=== PATIENT | female | born 1940 | race Caucasian/White ===

== ENCOUNTER 2019-11-09 18:32 | Emergency (ER) | payer MEDICARE, OTHER ==
[2019-11-09] MEDS ORDERED: Oxymetazoline 0.05% Nasal Spray 15 ML Bottle NAS SCH (18:45)
--- NOTE | 2019-11-09 18:48 | EDM.PDOC ---
ED HPI GENERAL MEDICAL PROBLEM - General Chief Complaint: ENT Problem Stated Complaint: NOSE BLEED Time Seen by Provider: 11/09/19 18:44 Source of Information: Reports: Patient History Limitations: Reports: No Limitations - History of Present Illness INITIAL COMMENTS - FREE TEXT/NARRATIVE: HISTORY AND PHYSICAL: History of present illness: Patient is a 78 year old female who presents to the ED with c/o epistasis of the left nare. She states she has had 2 brief nose bleeds earlier in the day, but resolved on their own. She states her nose started bleeding spontaneously again around 1630, but was unable to get the bleeding to stop. She denies any injury, trauma or falls. She is on Eliquist for Atrial Fibrillation. She states if it wasn't for her epistasis, she would not be here. Patient denies any fever , chills, headache, change in vision, syncope or near syncope. Denies any chest pain, back pain, shortness of breath or cough. Denies any GI or symptoms. Patient has been eating and drinking appropriately. Review of systems: As per history of present illness and below otherwise all systems reviewed and negative. Past medical history: As per history of present illness and as reviewed below otherwise noncontributory. Surgical history: As per history of present illness and as reviewed below otherwise noncontributory. Social history: See social history for further information Family history: As per history of present illness and as reviewed below otherwise noncontributory. Physical exam: General: Well developed and well nourished 78 year old female. Alert and orientated. Nontoxic appearing and in no acute distress. HEENT: Atraumatic, normocephalic, pupils equal and reactive bilaterally, negative for conjunctival pallor or scleral icterus, mucous membranes moist, epistasis of right nare, TMs normal bilaterally, throat clear, neck supple, nontender, trachea midline. No drooling or trismus noted. No meningeal signs. No hot potato voice noted. Lungs: Clear to auscultation, breath sounds equal bilaterally, chest nontender. Heart: S1S2, regular rate and rhythm without overt murmur Abdomen: Soft, nondistended, nontender. Negative for masses or hepatosplenomegaly. Negative for costovertebral tenderness. Skin: Intact, warm, dry. No lesions or rashes noted. Extremities: Atraumatic, moves all extremities per self without difficulty or deficits, negative for cords or calf pain. Neurovascular unremarkable. Neuro: Awake, alert, oriented. Cranial nerves II through XII unremarkable. Cerebellum unremarkable. Motor and sensory unremarkable throughout. Exam nonfocal. Notes: Dr Sanchez was able to perform the nasal packing. He used a 7.5 Rhino-Rocket that was saturated in TXA. Patient tolerated well. This did stop the bleeding. Lab has been ordered; will continue to monitor patient. Lab work is unremarkable. VSS. She has been watched for an hour without and bleeding post rhinorocket insert. Supportive care measures were reviewed and discussed. Voices understanding and is agreeable to plan of care. Denies any further questions or concerns at this time. Diagnostics: CBC Therapeutics: TXA, Afrin Prescription: None Impression: Epistatxis, left Plan: 1. Avoid any strenuous activity that will put pressure on your head, avoid sneezing or blowing your nose. 2. Tylenol and/or Ibuprofen as needed for pain. Return to the ED on Sunday to have the rhino-rocket removed. 3. Follow up with your primary care provider. Return to the ED as needed as discussed. Definitive disposition and diagnosis as appropriate pending reevaluation and review of above. Onset: Today Location: Reports: Face - Related Data Allergies Allergy/AdvReac Type Severity Reaction Status Date / Time ciprofloxacin HCl Allergy Numbness Verified 11/09/19 18:41 [From Cipro] Home Meds: Home Meds Levothyroxine [Levothroid] 137 mcg PO DAILY 11/14/14 [History] Omeprazole [Prilosec] 20 mg PO DAILY 11/14/14 [History] Digoxin [Lanoxin] 250 mcg PO DAILY #30 tablet 11/18/14 [Rx] Furosemide [Lasix] 20 mg PO DAILY #30 tab 11/18/14 [Rx] Metoprolol Tartrate 100 mg PO BID #60 tablet 11/18/14 [Rx] Apixaban [Eliquis] 2.5 mg PO ASDIRECTED 11/09/19 [History] ED ROS ENT - Review of Systems Review Of Systems: Comprehensive ROS is negative, except as noted in HPI. ED EXAM, ENT - Physical Exam Exam: See Below (See dictation) Course - Vital Signs Last Recorded V/S: Last Vital Signs Temp 98.3 F 11/09/19 18:47 Pulse 70 11/09/19 19:45 Resp 18 11/09/19 19:45 BP 139/97 H 11/09/19 19:45 Pulse Ox 93 L 11/09/19 19:45 - Orders/Labs/Meds Labs: Laboratory Tests 11/09/19 11/09/19 Range/Units 19:28 19:28 WBC 9.03 (4.0-11.0) K/uL RBC 5.17 (4.30-5.90) M/uL Hgb 16.5 H (12.0-16.0) g/dL Hct 49.5 H (36.0-46.0) % MCV 95.7 (80.0-98.0) fL MCH 31.9 (27.0-32.0) pg MCHC 33.3 (31.0-37.0) g/dL RDW Std Deviation 51.6 (28.0-62.0) fl RDW Coeff of Pearl 15 (11.0-15.0) % Plt Count 205 (150-400) K/uL MPV 11.40 (7.40-12.00) fL Neut % (Auto) 75.4 (48.0-80.0) % Lymph % (Auto) 16.2 (16.0-40.0) % [place] % (Auto) 6.5 (0.0-15.0) % Eos % (Auto) 1.3 (0.0-7.0) % Baso % (Auto) 0.6 (0.0-1.5) % Neut # (Auto) 6.8 H (1.4-5.7) K/uL Lymph # (Auto) 1.5 (0.6-2.4) K/uL [place] # (Auto) 0.6 (0.0-0.8) K/uL Eos # (Auto) 0.1 (0.0-0.7) K/uL Baso # (Auto) 0.1 (0.0-0.1) K/uL Nucleated RBC % 0.0 /100WBC Nucleated RBCs # 0 K/uL Sodium 140 (136-145) mmol/L Potassium 4.1 (3.5-5.1) mmol/L Chloride 104 (98-107) mmol/L Carbon Dioxide 31.6 (21.0-32.0) mmol/L BUN 21 H (7.0-18.0) mg/dL Creatinine 0.8 (0.6-1.0) mg/dL Est Cr Clr Drug Dosing 54.25 mL/min Estimated GFR (MDRD) > 60.0 ml/min Glucose 140 H (74-106) mg/dL Calcium 8.9 (8.5-10.1) mg/dL Meds: Medications Discontinued Medications Generic Name Dose Route Start Last Admin Trade Name Erendira PRN Reason Stop Dose Admin Oxymetazoline HCl 1 ml 11/09/19 18:45 11/09/19 19:46 Afrin Original 0.05% Nasal [place] VINH 1 ml BID JIGNESH Administration Tranexamic Acid 1,000 mg 11/09/19 18:42 11/09/19 19:45 Cyklokapron TOP 11/09/19 18:52 1,000 mg ONETIME ONE Administration Departure - Departure Time of Disposition: 19:49 Disposition: Home, Self-Care 01 Clinical Impression: Epistaxis - Discharge Information Instructions: Nosebleed, [id number] Referrals: Estuardo Toussaint MD [Primary Care Provider] - Forms: ED Department Discharge Additional Instructions: The following information is given to patients seen in the emergency department who are being discharged to home. This information is to outline your options for follow-up care. We provide all patients seen in our emergency department with a follow-up referral. The need for follow-up, as well as the timing and circumstances, are variable depending upon the specifics of your emergency department visit. If you don't have a primary care physician on staff, we will provide you with a referral. We always advise you to contact your personal physician following an emergency department visit to inform them of the circumstance of the visit and for follow-up with them and/or the need for any referrals to a consulting specialist. The emergency department will also refer you to a specialist when appropriate. This referral assures that you have the opportunity for follow-up care with a specialist. All of these measure are taken in an effort to provide you with optimal care, which includes your follow-up. Under all circumstances we always encourage you to contact your private physician who remains a resource for coordinating your care. When calling for follow-up care, please make the office aware that this follow-up is from your recent emergency room visit. If for any reason you are refused follow-up, please contact the [facility] Emergency Department at and asked to speak to the emergency department charge nurse. [facility] [address] [place] [address] [facility] [address] [place] [id number] 1. Avoid any strenuous activity that will put pressure on your head, avoid sneezing or blowing your nose. 2. Tylenol and/or Ibuprofen as needed for pain. Return to the ED on Sunday to have the rhino-rocket removed. 3. Follow up with your primary care provider. Return to the ED as needed as discussed. Sepsis Event Note - Focused Exam Vital Signs: Vital Signs Temp Pulse Resp BP Pulse Ox 11/09/19 19:45 70 18 139/97 H 93 L 11/09/19 19:30 72 18 133/108 H 93 L 11/09/19 18:47 98.3 F 87 16 148/110 H 92 L Date Exam was Performed: 11/09/19 Time Exam was Performed: 21:46
[2019-11-09 20:01] LABS: BLOOD UREA NITROGEN,BUN 21 mg/dL (7.0-18.0); CARBON DIOXIDE,CO2 31.6 mmol/L (21.0-32.0); CHLORIDE,CL 104 mmol/L (98-107); GLUCOSE RANDOM 140 mg/dL (74-106); POTASSIUM,K 4.1 mmol/L (3.5-5.1); SODIUM,NA 140 mmol/L (136-145)
[2019-11-09 20:09] VITALS: BP 139/97; PULSE 70
== END 2019-11-09 20:18 | disposition home or self-care (01) ==
LOC: MW.ED 18:32
DX: R04.0 Epistaxis (principal); I48.91 Unspecified atrial fibrillation; Z88.1 Allergy status to other antibiotic agents; Z79.899 Other long term (current) drug therapy; Z79.01 Long term (current) use of anticoagulants
CPT/HCPCS: 30901; 30903; 36415; 80048; 85025; 99283; 99284-25

== ENCOUNTER 2019-11-11 10:31 | Emergency (ER) | payer MEDICARE, OTHER ==
--- NOTE | 2019-11-11 11:04 | EDM.PDOC ---
ED HPI GENERAL MEDICAL PROBLEM - General Chief Complaint: ENT Problem Stated Complaint: NOSE BLEED Time Seen by Provider: 11/11/19 11:01 Source of Information: Reports: Patient History Limitations: Reports: No Limitations - History of Present Illness INITIAL COMMENTS - FREE TEXT/NARRATIVE: HISTORY AND PHYSICAL: History of present illness: Patient is a 78-year-old female presents to the ED for removal of nasal packing. Patient was seen in the ED 2 days ago and had a Rhino Rocket placed in the left nostril due to anterior epistaxis. Patient has history of atrial fibrillation on Eliquis. Has not been taking her Eliquis for the past 2 days and she presents to the ED to have the packing removed. She states she has not had any bleeding but has had a clear runny nose. She is not spitting up and blood or clots. She denies chest pain, shortness of breath, headache or other complaints at this time. Review of systems: As per history of present illness and below otherwise all systems reviewed and negative. Past medical history: As per history of present illness and as reviewed below otherwise noncontributory. Surgical history: As per history of present illness and as reviewed below otherwise noncontributory. Social history: No reported history of drug or alcohol abuse. Family history: As per history of present illness and as reviewed below otherwise noncontributory. Physical exam: General: Patient sitting comfortably in no acute distress and nontoxic appearing HEENT: Packing to the left nares. Atraumatic, normocephalic, pupils reactive, negative for conjunctival pallor or scleral icterus, mucous membranes moist, throat clear, neck supple, nontender, trachea midline. No meningeal signs. Lungs: Clear to auscultation, breath sounds equal bilaterally, chest nontender. Heart: S1S2, regular, negative for clicks, rubs, or overt murmur. Abdomen: Soft, nondistended, nontender. Negative for masses or hepatosplenomegaly. Negative for costovertebral tenderness. No rigidity, rebound , guarding. Pelvis: Stable nontender. Genitourinary: Deferred. Rectal: Deferred. Extremities: Atraumatic, negative for cords or calf pain. Neurovascular unremarkable. Neuro: Awake, alert, oriented. Cranial nerves II through XII unremarkable. Cerebellum unremarkable. Motor and sensory unremarkable throughout. Exam nonfocal. Notes: a 10cc syringe was used to deflate balloon from rhino rocket. The packing was easily removed from the left nares. No bleeding or other complications. Patient tolerated procedure well. Observed for 30 minutes without bleeding. Diagnostics: none Therapeutics: none Prescriptions: none Impression: Packing removal, history of epistaxis Plan: Do no blow nose, pick nose, or sneeze as instructed. Follow up with primary care provider and ENT Return to ED as needed as discussed Definitive disposition and diagnosis as appropriate pending reevaluation and review of above. - Related Data Allergies Allergy/AdvReac Type Severity Reaction Status Date / Time ciprofloxacin HCl Allergy Numbness Verified 11/11/19 10:43 [From Cipro] Home Meds: Home Meds Levothyroxine [Levothroid] 137 mcg PO DAILY 11/14/14 [History] Digoxin [Lanoxin] 250 mcg PO DAILY #30 tablet 11/18/14 [Rx] Furosemide [Lasix] 20 mg PO DAILY #30 tab 11/18/14 [Rx] Metoprolol Tartrate 100 mg PO BID #60 tablet 11/18/14 [Rx] Apixaban [Eliquis] 2.5 mg PO ASDIRECTED 11/09/19 [History] Past Medical History HEENT History: Reports: Epistaxis Cardiovascular History: Reports: Afib, Cardiomyopathy Respiratory History: Reports: None Gastrointestinal History: Reports: None Genitourinary History: Reports: None 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 Musculoskeletal History: Reports: None Neurological History: Reports: None Psychiatric History: Reports: None Endocrine/Metabolic History: Reports: None Hematologic History: Reports: None Immunologic History: Reports: None Oncologic (Cancer) History: Reports: Uterine Dermatologic History: Reports: None - Infectious Disease History Infectious Disease History: Reports: Chicken Pox, Mumps - Past Surgical History Head Surgeries/Procedures: Reports: None HEENT Surgical History: Reports: None Cardiovascular Surgical History: Reports: None Respiratory Surgical History: Reports: None GI Surgical History: Reports: None Female Surgical History: Reports: Hysterectomy Endocrine Surgical History: Reports: None Neurological Surgical History: Reports: None Musculoskeletal Surgical History: Reports: None Dermatological Surgical History: Reports: None Social & Family History - Family History Family Medical History: Noncontributory - Tobacco Use Smoking Status *Q: Never Smoker Second Hand Smoke Exposure: No - Caffeine Use Caffeine Use: Reports: None - Recreational Drug Use Recreational Drug Use: No ED ROS ENT - Review of Systems Review Of Systems: Comprehensive ROS is negative, except as noted in HPI. ED EXAM, ENT - Physical Exam Exam: See Below (see dictation) Course - Vital Signs Last Recorded V/S: Last Vital Signs Temp 97.2 F 11/11/19 10:44 Pulse 75 11/11/19 10:44 Resp 18 11/11/19 10:44 BP 142/89 H 11/11/19 10:44 Pulse Ox 95 11/11/19 10:44 Departure - Departure Time of Disposition: 11:32 Disposition: Home, Self-Care 01 Condition: Good Clinical Impression: Encounter for removal of nasal packing - Discharge Information Referrals: [facility] [Outside] John Shook MD [Ordering Only Provider] - Estuardo Toussaint MD [Primary Care Provider] - Forms: ED Department Discharge Additional Instructions: The following information is given to patients seen in the emergency department who are being discharged to home. This information is to outline your options for follow-up care. We provide all patients seen in our emergency department with a follow-up referral. The need for follow-up, as well as the timing and circumstances, are variable depending upon the specifics of your emergency department visit. If you don't have a primary care physician on staff, we will provide you with a referral. We always advise you to contact your personal physician following an emergency department visit to inform them of the circumstance of the visit and for follow-up with them and/or the need for any referrals to a consulting specialist. The emergency department will also refer you to a specialist when appropriate. This referral assures that you have the opportunity for follow-up care with a specialist. All of these measure are taken in an effort to provide you with optimal care, which includes your follow-up. Under all circumstances we always encourage you to contact your private physician who remains a resource for coordinating your care. When calling for follow-up care, please make the office aware that this follow-up is from your recent emergency room visit. If for any reason you are refused follow-up, please contact the [facility] Emergency Department at and asked to speak to the emergency department charge nurse. [facility] [address] [place] [id number] [facility] [address] [place] [id number] Shook [phone] Do no blow nose, pick nose, or sneeze as instructed. Follow up with primary care provider and ENT Return to ED as needed as discussed Sepsis Event Note - Evaluation Sepsis Screening Result: No Definite Risk - Focused Exam Vital Signs: Vital Signs Temp Pulse Resp BP Pulse Ox 11/11/19 10:44 97.2 F 75 18 142/89 H 95 Date Exam was Performed: 11/11/19 Time Exam was Performed: 11:32
[2019-11-11 11:50] VITALS: BP 139/78; PULSE 72
== END 2019-11-11 11:46 | disposition home or self-care (01) ==
LOC: MW.ED 10:31
DX: Z48.00 Encounter for change or removal of nonsurgical wound dressing (principal); I48.91 Unspecified atrial fibrillation; Z79.899 Other long term (current) drug therapy; Z88.1 Allergy status to other antibiotic agents
CPT/HCPCS: 99282

== ENCOUNTER 2020-03-30 09:07 | Emergency (ER) | payer MEDICARE, OTHER ==
[2020-03-30] MEDS ORDERED: Oxymetazoline 0.05% Nasal Spray 15 ML Bottle NAS ONE (09:13)
[2020-03-30 10:00] LABS: BLOOD UREA NITROGEN,BUN 16 mg/dL (7.0-18.0); CARBON DIOXIDE,CO2 27.5 mmol/L (21.0-32.0); CHLORIDE,CL 105 mmol/L (98-107); GLUCOSE RANDOM 156 mg/dL (74-106); POTASSIUM,K 3.5 mmol/L (3.5-5.1); SODIUM,NA 142 mmol/L (136-145)
--- NOTE | 2020-03-30 10:44 | EDM.PDOC ---
ED HPI GENERAL MEDICAL PROBLEM - General Chief Complaint: ENT Problem Stated Complaint: NOSE BLEED Time Seen by Provider: 03/30/20 09:09 Source of Information: Reports: Patient, Old Records History Limitations: Reports: No Limitations - History of Present Illness INITIAL COMMENTS - FREE TEXT/NARRATIVE: 79-year-old female past medical history of atrial fibrillation on apixaban, h ypertrophic cardiomyopathy, hypertension presenting with epistaxis. Reports the onset of left-sided epistaxis about 2 hours prior to arrival. No history of any digital trauma. Also had a nosebleed last night that resolved on its own. Denies any other source of hemorrhage. No recent change in her anticoagulation dosage. No other complaints. - Related Data Allergies Allergy/AdvReac Type Severity Reaction Status Date / Time ciprofloxacin HCl Allergy Numbness Verified 03/30/20 09:12 [From Cipro] Home Meds: Home Meds Levothyroxine [Levothroid] 137 mcg PO DAILY 11/14/14 [History] Digoxin [Lanoxin] 250 mcg PO DAILY #30 tablet 11/18/14 [Rx] Furosemide [Lasix] 20 mg PO DAILY #30 tab 11/18/14 [Rx] Metoprolol Tartrate 100 mg PO BID #60 tablet 11/18/14 [Rx] Apixaban [Eliquis] 1 tab PO BID 11/09/19 [History] Past Medical History HEENT History: Reports: Epistaxis Cardiovascular History: Reports: Afib, Cardiomyopathy Respiratory History: Reports: None Gastrointestinal History: Reports: None Genitourinary History: Reports: None BOOT TURNER History: Reports: None Musculoskeletal History: Reports: None Neurological History: Reports: None Psychiatric History: Reports: None Endocrine/Metabolic History: Reports: Hypothyroidism Hematologic History: Reports: None Immunologic History: Reports: None Oncologic (Cancer) History: Reports: Uterine Dermatologic History: Reports: None - Infectious Disease History Infectious Disease History: Reports: Chicken Pox, Measles, Mumps - Past Surgical History Head Surgeries/Procedures: Reports: None HEENT Surgical History: Reports: None Cardiovascular Surgical History: Reports: None Respiratory Surgical History: Reports: None GI Surgical History: Reports: None Female Surgical History: Reports: Hysterectomy Endocrine Surgical History: Reports: None Neurological Surgical History: Reports: None Musculoskeletal Surgical History: Reports: None Dermatological Surgical History: Reports: None Social & Family History - Family History Family Medical History: Noncontributory - Tobacco Use Smoking Status *Q: Former Smoker Used Tobacco, but Quit: Yes Month/Year Tobacco Last Used: 20 years ago - Caffeine Use Caffeine Use: Reports: None - Recreational Drug Use Recreational Drug Use: No ED ROS ENT - Review of Systems Review Of Systems: See Below Constitutional: Denies: Fever HEENT: Reports: Nosebleed. Denies: Rhinitis, Sinus Problem Respiratory: Denies: No Symptoms, Shortness of Breath Cardiovascular: Denies: Chest Pain GI/Abdominal: Denies: Bloody Stool : Denies: Hematuria ED EXAM, ENT - Physical Exam Exam: See Below Text/Narrative:: Vital signs reviewed. Nursing notes reviewed. Constitutional: Awake, alert, non-distressed. Head: Normocephalic, atraumatic. Eyes: EOMI, conjunctiva normal, no discharge, no scleral icterus. Ears, Nose, Throat: External ears and nose normal, moist oral mucosa. Dry blood noted in the posterior oropharynx. Dried blood in the left nostril. No palatal petechiae. Cardiovascular: 2+ radial pulse, capillary refill less than 2 seconds. Pulmonary: normal work of breathing, no accessory muscle use. Abdomen/GI: Soft, nontender, nondistended, no guarding or rigidity, no masses. Musculoskeletal: No deformities. Integumentary: Appropriate color for ethnicity, warm, dry, no pallor or jaundice, no rash. Neurologic: Alert, answering questions appropriately, normal speech, no facial droop, moving all extremities well. Psychiatric: Appropriate mood and affect, normal thought process. Course - Vital Signs Text/Narrative:: Patient hemodynamically stable, afebrile, well-appearing, looks nontoxic. Differential diagnosis includes but is not limited to: Anterior epistaxis, posterior epistaxis, coagulopathy, thrombocytopenia, etc. Instructed patient to blow out the clots in her nose, then instilled several sprays of Afrin and applied a foam nasal clamp. This successfully controlled the hemorrhage. Lab work shows no evidence of coagulopathy or thrombocytopenia. Hemodynamically stable, well-appearing. Stable discharge home. Provided instructions about epistaxis control at home. Recommended patient restart her anticoagulation tomorrow but hold her dose today. Plan: Patient is stable to discharge home with outpatient primary care follow- up. Strict emergency department return precautions were provided, patient indicated understanding. All questions were answered prior to departure. Discharged in good condition. Last Recorded V/S: Last Vital Signs Temp 36.3 C 03/30/20 10:44 Pulse 74 03/30/20 10:44 Resp 16 03/30/20 10:44 BP 168/89 H 03/30/20 10:44 Pulse Ox 91 L 03/30/20 10:44 - Orders/Labs/Meds Labs: Laboratory Tests 03/30/20 03/30/20 03/30/20 Range/Units 09:25 09:25 09:25 WBC 5.53 (4.0-11.0) K/uL RBC 5.45 (4.30-5.90) M/uL Hgb 17.0 H (12.0-16.0) g/dL Hct 51.9 H (36.0-46.0) % MCV 95.2 (80.0-98.0) fL MCH 31.2 (27.0-32.0) pg MCHC 32.8 (31.0-37.0) g/dL RDW Std Deviation 52.1 (28.0-62.0) fl RDW Coeff of Pearl 15 (11.0-15.0) % Plt Count 206 (150-400) K/uL MPV 11.00 (7.40-12.00) fL Neut % (Auto) 69.3 (48.0-80.0) % Lymph % (Auto) 20.3 (16.0-40.0) % Fergus % (Auto) 8.1 (0.0-15.0) % Eos % (Auto) 1.8 (0.0-7.0) % Baso % (Auto) 0.5 (0.0-1.5) % Neut # (Auto) 3.8 (1.4-5.7) K/uL Lymph # (Auto) 1.1 (0.6-2.4) K/uL Fergus # (Auto) 0.5 (0.0-0.8) K/uL Eos # (Auto) 0.1 (0.0-0.7) K/uL Baso # (Auto) 0.0 (0.0-0.1) K/uL Nucleated RBC % 0.0 /100WBC Nucleated RBCs # 0 K/uL INR 1.05 Sodium 142 (136-145) mmol/L Potassium 3.5 (3.5-5.1) mmol/L Chloride 105 (98-107) mmol/L Carbon Dioxide 27.5 (21.0-32.0) mmol/L BUN 16 (7.0-18.0) mg/dL Creatinine 0.7 (0.6-1.0) mg/dL Est Cr Clr Drug Dosing 61.01 mL/min Estimated GFR (MDRD) > 60.0 ml/min Glucose 156 H (74-106) mg/dL Calcium 9.1 (8.5-10.1) mg/dL Meds: Medications Discontinued Medications Generic Name Dose Route Start Last Admin Trade Name Freq PRN Reason Stop Dose Admin Oxymetazoline HCl 2 ml 03/30/20 09:13 03/30/20 09:47 Afrin Original 0.05% Nasal Lyon VINH 03/30/20 09:14 2 applic ONETIME ONE Administration Departure - Departure Time of Disposition: 10:43 Disposition: Home, Self-Care 01 Condition: Good Clinical Impression: Epistaxis not due to trauma - Discharge Information *PRESCRIPTION DRUG MONITORING PROGRAM REVIEWED*: Not Applicable *COPY OF PRESCRIPTION DRUG MONITORING REPORT IN PATIENT LONNIE: Not Applicable Instructions: Nosebleed, Adult Referrals: Estuardo Toussaint MD [Primary Care Provider] - 1 Week (As needed) Forms: ED Department Discharge Additional Instructions: Thank you for choosing the [facility] emergency department in [place] for your medical needs today. It was a pleasure caring for you. You were seen in the emergency department for a nosebleed. We were able to control this with some Afrin and a nasal clamp. If your nosebleed restarts at home, I recommend blowing your nose to get the clots out of your nose. You can then spray Afrin 2-3 times in each nostril and apply the nasal clamp for about 30 minutes. If this does not control the noseb leed, he should come back to the emergency department to be reevaluated. Please return the emergency department immediately if your symptoms worsen or if you feel worse. The following information is given to patients seen in the emergency department who are being discharged. This information is to outline your options for follow-up care. We provide all patients seen in our emergency department with a follow-up referral. The need for follow-up, as well as the timing and circumstances, are variable depending upon the specifics of your emergency department visit. If you don't have a primary care physician on staff, we will provide you with a referral. We always advise you to contact your personal physician following an emergency department visit to inform them of the circumstance of the visit and for follow-up with them and/or the need for any referrals to a consulting specialist. The emergency department will also refer you to a specialist when appropriate. This referral assures that you have the opportunity for follow-up care with a specialist. All of these measure are taken in an effort to provide you with optimal care, which includes your follow-up. Under all circumstances we always encourage you to contact your private physician who remains a resource for coordinating your care. When calling for follow-up care, please make the office aware that this follow-up is from your recent emergency room visit. If for any reason you are refused follow-up, please contact the [facility] Emergency Department at and asked to speak to the emergency department charge nurse. If you do not have a primary care physician that is caring for you, you can contact these clinics below to set up an appointment to establish care: [facility] - Primary Care [address] [place] [address] [place] [address] Sepsis Event Note (ED) - Evaluation Sepsis Screening Result: No Definite Risk - Focused Exam Vital Signs: Vital Signs Temp Pulse Resp BP Pulse Ox 03/30/20 10:44 36.3 C 74 16 168/89 H 91 L 03/30/20 10:01 36.2 C 90 16 162/102 H 93 L 03/30/20 09:08 36.5 C 88 18 204/116 H 94 L
[2020-03-30 10:46] VITALS: BP 168/89
[2020-03-30 13:55] VITALS: PULSE 72
== END 2020-03-30 10:48 | disposition home or self-care (01) ==
LOC: MW.ED 09:07
DX: R04.0 Epistaxis (principal); I48.91 Unspecified atrial fibrillation; Z88.1 Allergy status to other antibiotic agents; Z79.01 Long term (current) use of anticoagulants; Z79.899 Other long term (current) drug therapy; Z87.891 Personal history of nicotine dependence
CPT/HCPCS: 30901; 36415; 80048; 85025; 85610; 99283; A9270

== ENCOUNTER 2021-01-23 22:12 | Emergency (ER) | payer MEDICARE, OTHER ==
[2021-01-23 23:10] VITALS: BP 153/82; PULSE 96
[2021-01-23] MEDS ORDERED: Oxymetazoline 0.05% Nasal Spray 15 ML Bottle NAS ONE (23:13)
--- NOTE | 2021-01-23 23:17 | CR ---
INDICATION: Shortness of breath TECHNIQUE: Chest radiograph 1 view COMPARISON: 11/13/2014 FINDINGS: Severe degradation of image quality noted due to body habitus. Mediastinum: Large sliding type gastric hiatal hernia (type IV) is present and significantly increased in size compared to prior exam. Mild cardiomegaly is noted without change. Lung: Both lungs are unremarkable in appearance. No sign of pleural effusion seen. No pneumothorax is identified. Bone and Soft tissue: Unremarkable for age. IMPRESSION: 1. Large sliding type gastric hiatal hernia (type IV) is present and significantly increased in size compared to prior exam. Dictated by Gregory Reese MD @ 01/23/2021 11:14:31 PM Dictated by: Gregory Reese MD @ 01/23/2021 23:14:37 (Electronically Signed)
[2021-01-23 23:18] LABS: BLOOD UREA NITROGEN,BUN 21 mg/dL (7.0-18.0); CARBON DIOXIDE,CO2 28.8 mmol/L (21.0-32.0); CHLORIDE,CL 105 mmol/L (98-107); GLUCOSE RANDOM 150 mg/dL (74-106); POTASSIUM,K 4.5 mmol/L (3.5-5.1); SODIUM,NA 143 mmol/L (136-145)
[2021-01-24] MEDS ORDERED: Tranexamic Acid 1,000 MG in Sodium Chloride 0.9% 500 ML IV ONE (00:28)
[2021-01-24] MEDS ORDERED: Tranexamic Acid 1,000 MG in Sodium Chloride 0.9% 100 ML IV ONE (00:41)
--- NOTE | 2021-01-24 01:24 | EDM.PDOC ---
ED HPI GENERAL MEDICAL PROBLEM - General Chief Complaint: ENT Problem Stated Complaint: NOSE BLEED Time Seen by Provider: 01/23/21 22:17 - History of Present Illness INITIAL COMMENTS - FREE TEXT/NARRATIVE: CHIEF COMPLAINT(S): Bloody nose HISTORY OF PRESENT ILLNESS: This is a 80-year-old woman with a past medical history of atrial fibrillation on Eliquis who comes to the emergency department with a chief complaint of bloody nose. The patient states that she has been having frequent bloody noses and has been to the emergency department multiple times. She states that she is normally able to stop them at home however this evening it started to bleed approximately 1 and half hours ago. She did try to put compression on it but it seems to continually bleed. She denies any chest pain, shortness of breath, abdominal pain, nausea or vomiting. She denies any headache. She denies any runny nose or congestion. She denies any pain at all whatsoever. She denies any lower extremity edema. She states that given the bloody noses they have decreased her Eliquis but she is still having bloody noses. REVIEW OF SYSTEMS: Constitutional: Denies fever, chills. Eyes: Denies eye pain Ears, Nose, Mouth, & Throat: Positive for epistaxis denies earache Cardiovascular: Denies chest pain Respiratory: Denies shortness of breath Gastrointestinal: Denies Nausea, vomiting, diarrhea, hematochezia. Genitourinary: Denies hematuria Skin:Denies a rash MSK: Denies joint pain Neurological: Denies blurred vision Psychiatric: Denies depression PAST MEDICAL HISTORY: As per history of present illness and as reviewed below otherwise noncontributory. SURGICAL HISTORY: As per history of present illness and as reviewed below otherwise noncontributory. SOCIAL HISTORY: As per history of present illness and as reviewed below other wayne noncontributory. FAMILY HISTORY: As per history of present illness and as reviewed below otherwise noncontributory. EXAMINATION OF ORGAN SYSTEMS/BODY AREAS: Constitutional: Blood pressure was 146/113, heart rate 103, respiratory rate 18 with an oxygen saturation 90% on room air. Temperature 36.1 General: Elderly woman who does not appear to be in any acute distress. Psychiatric: Appropriate mood and affect. Eyes: No scleral icterus or conjunctival erythema ENMT: Moist mucous membranes. No pharyngeal erythema there is some blood in the oropharynx but there is no obvious bleeding in the posterior pharynx. The right nostril is clear without any epistaxis. The left nostril has a large clot with small trickle of blood. No obvious area of active bleeding. Cardiovascular: Tachycardic and irregular no gallops, murmurs, or rubs. Bilateral upper extremity pulses symmetric and intact. No peripheral edema. No JVD. Respiratory: Lungs clear to auscultation bilaterally. No wheezes, rales, or rhonchi. The patient does appear to be mildly tachypneic but is speaking in full sentences. Gastrointestinal: Soft, non-tender, non-distended. Normoactive bowel sounds Genitourinary: No suprapubic tenderness Musculoskeletal: Normal range of motion. Skin: No lesions or abrasions. Neurological: Alert, GCS 15 MEDICAL DECISION MAKING AND COURSE IN THE ED WITH INTERPRETATION/REVIEW OF DIAGNOSTIC STUDIES: This is a 80-year-old with man with a past medical history of atrial fibrillation on Eliquis who comes to the emergency department with 1 and half hours of epistaxis with evidence of bleeding coming out of the left nostril without any evidence of posterior pharyngeal bleeding. I do believe this is likely secondary to anterior nares bleeding. At this time we will apply pressure for approximately 15 minutes and reevaluate. In the meantime the patient is mildly tachypneic and does have a history of atrial fibrillation. Will obtain a cardiac work-up including chest x-ray, troponin, and BMP. EKG did reveal atrial fibrillation which is unchanged from prior. After approximately 15 minutes the pressure was removed and the patient still had continued bleeding. There was a large clot located in the left nostril. Therefore at this time we will provide Afrin nasally and then provide compression again. Laboratory: CBC reveals a mildly elevated white count 11.35, elevation hemoglobin at 17.6 and hematocrit 54.4. Otherwise unremarkable. Coags are within normal limits. BMP reveals mildly elevated BUN at 21 otherwise unremarkable. There is hyperglycemia at 150. Magnesium is normal. Troponin is negative. BNP is mildly elevated at 182. The radiological images were viewed by myself along with reading the report from the radiologist. Chest x-ray reveals a large sliding-type gastric hiatal hernia which is increased from prior otherwise no acute cardiopulmonary process. After using Afrin the patient's bloody nose did stop however there was a large clot that extended from the anterior nares all the way into the posterior pharynx which was causing her to have some shortness of breath. Therefore using multiple different modalities over about an hour we were able to dislodge the clot. There was no active bleeding in the posterior pharynx or in the anterior nares. At this time I did discuss the hiatal hernia with the patient. She states that she has not known of this however she denies any reflux symptoms, vomiting, pain, shortness of breath. I did discuss with her at this time that I would like her to follow-up with general surgery for the hiatal hernia. She was given treatment modalities for the epistaxis DISPOSITION: The patient was discharged home in stable condition. The patient will follow up with general surgery for the hiatal hernia and her primary care physician for further evaluation CONDITION: Fair PROCEDURES: None FINAL IMPRESSION(S)/DIAGNOSES: 1. Acute epistaxis, resolved 2. Acute dyspnea likely secondary to nasal obstruction, improved 3. Hiatal hernia Omar Goncalves M.D. - Related Data Allergies Allergy/AdvReac Type Severity Reaction Status Date / Time ciprofloxacin HCl Allergy Numbness Verified 01/23/21 22:23 [From Cipro] Home Meds: Home Meds Levothyroxine [Levothroid] 137 mcg PO DAILY 11/14/14 [History] Digoxin [Lanoxin] 250 mcg PO DAILY #30 tablet 11/18/14 [Rx] Furosemide [Lasix] 20 mg PO DAILY #30 tab 11/18/14 [Rx] Metoprolol Tartrate 100 mg PO BID #60 tablet 11/18/14 [Rx] Apixaban [Eliquis] 1 tab PO BID 11/09/19 [History] Past Medical History HEENT History: Reports: Epistaxis Cardiovascular History: Reports: Afib, Cardiomyopathy Respiratory History: Reports: None Gastrointestinal History: Reports: None Genitourinary History: Reports: None 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 Musculoskeletal History: Reports: None Neurological History: Reports: None Psychiatric History: Reports: None Endocrine/Metabolic History: Reports: Hypothyroidism Hematologic History: Reports: None Immunologic History: Reports: None Oncologic (Cancer) History: Reports: Uterine Dermatologic History: Reports: None - Infectious Disease History Infectious Disease History: Reports: Chicken Pox, Measles, Mumps - Past Surgical History Head Surgeries/Procedures: Reports: None HEENT Surgical History: Reports: None Cardiovascular Surgical History: Reports: None Respiratory Surgical History: Reports: None GI Surgical History: Reports: None Female Surgical History: Reports: Hysterectomy Endocrine Surgical History: Reports: None Neurological Surgical History: Reports: None Musculoskeletal Surgical History: Reports: None Dermatological Surgical History: Reports: None Social & Family History - Family History Family Medical History: No Pertinent Family History - Caffeine Use Caffeine Use: Reports: None ED ROS GENERAL - Review of Systems Review Of Systems: See Below ED EXAM, GENERAL - Physical Exam Exam: See Below Course - Vital Signs Last Recorded V/S: Last Vital Signs Temp 36.1 C 01/23/21 22:24 Pulse 96 01/23/21 23:09 Resp 18 01/23/21 23:09 BP 153/82 H 01/23/21 23:09 Pulse Ox 95 01/23/21 23:09 - Orders/Labs/Meds Labs: Laboratory Tests 01/23/21 01/23/21 01/23/21 Range/Units 22:36 22:36 22:36 WBC 11.35 H (4.0-11.0) K/uL RBC 5.45 (4.30-5.90) M/uL Hgb 17.6 H (12.0-16.0) g/dL Hct 54.4 H (36.0-46.0) % MCV 99.8 H (80.0-98.0) fL MCH 32.3 H (27.0-32.0) pg MCHC 32.4 (31.0-37.0) g/dL RDW Std Deviation 51.9 (28.0-62.0) fl RDW Coeff of Pearl 14 (11.0-15.0) % Plt Count 199 (150-400) K/uL MPV 11.40 (7.40-12.00) fL Neut % (Auto) 83.0 H (48.0-80.0) % Lymph % (Auto) 10.0 L (16.0-40.0) % [place] % (Auto) 5.6 (0.0-15.0) % Eos % (Auto) 0.9 (0.0-7.0) % Baso % (Auto) 0.5 (0.0-1.5) % Neut # (Auto) 9.4 H (1.4-5.7) K/uL Lymph # (Auto) 1.1 (0.6-2.4) K/uL [place] # (Auto) 0.6 (0.0-0.8) K/uL Eos # (Auto) 0.1 (0.0-0.7) K/uL Baso # (Auto) 0.1 (0.0-0.1) K/uL Nucleated RBC % 0.0 /100WBC Nucleated RBCs # 0 K/uL INR 1.12 APTT 25.0 (18.6-31.3) SEC Sodium 143 (136-145) mmol/L Potassium 4.5 (3.5-5.1) mmol/L Chloride 105 (98-107) mmol/L Carbon Dioxide 28.8 (21.0-32.0) mmol/L BUN 21 H (7.0-18.0) mg/dL Creatinine 0.9 (0.6-1.0) mg/dL Est Cr Clr Drug Dosing 44.86 mL/min Estimated GFR (MDRD) > 60.0 ml/min Glucose 150 H (74-106) mg/dL Calcium 9.3 (8.5-10.1) mg/dL Magnesium 2.0 (1.8-2.4) mg/dL Troponin I < 0.050 (0.000-0.056) ng/mL B-Natriuretic Peptide (<100) PG/ML 01/23/21 Range/Units 22:36 WBC (4.0-11.0) K/uL RBC (4.30-5.90) M/uL Hgb (12.0-16.0) g/dL Hct (36.0-46.0) % MCV (80.0-98.0) fL MCH (27.0-32.0) pg MCHC (31.0-37.0) g/dL RDW Std Deviation (28.0-62.0) fl RDW Coeff of [place] (11.0-15.0) % Plt Count (150-400) K/uL MPV (7.40-12.00) fL Neut % (Auto) (48.0-80.0) % Lymph % (Auto) (16.0-40.0) % [place] % (Auto) (0.0-15.0) % Eos % (Auto) (0.0-7.0) % Baso % (Auto) (0.0-1.5) % Neut # (Auto) (1.4-5.7) K/uL Lymph # (Auto) (0.6-2.4) K/uL [place] # (Auto) (0.0-0.8) K/uL Eos # (Auto) (0.0-0.7) K/uL Baso # (Auto) (0.0-0.1) K/uL Nucleated RBC % /100WBC Nucleated RBCs # K/uL INR APTT (18.6-31.3) SEC Sodium (136-145) mmol/L Potassium (3.5-5.1) mmol/L Chloride (98-107) mmol/L Carbon Dioxide (21.0-32.0) mmol/L BUN (7.0-18.0) mg/dL Creatinine (0.6-1.0) mg/dL Est Cr Clr Drug Dosing mL/min Estimated GFR (MDRD) ml/min Glucose (74-106) mg/dL Calcium (8.5-10.1) mg/dL Magnesium (1.8-2.4) mg/dL Troponin I (0.000-0.056) ng/mL B-Natriuretic Peptide 182 H (<100) PG/ML Meds: Medications Discontinued Medications Generic Name Dose Route Start Last Admin Trade Name Freq PRN Reason Stop Dose Admin Tranexamic Acid 1,000 mg/ 510 mls @ 62.5 mls/hr 01/24/21 00:28 Sodium Chloride IV 01/24/21 08:37 ONETIME ONE Tranexamic Acid 1,000 mg/ 110 mls @ 600 mls/hr 01/24/21 00:41 Sodium Chloride IV 01/24/21 00:51 ONETIME ONE Oxymetazoline HCl 1 ml 01/23/21 23:13 01/23/21 23:51 Oxymetazoline 0.05% Nasal [place] 15 Ml Bottle VINH 01/23/21 23:14 1 ml ONETIME ONE Administration Tranexamic Acid 1,000 mg 01/24/21 00:43 01/24/21 01:37 Tranexamic Acid 1,000 Mg/10 Ml Amp TOP 01/24/21 00:52 Not Given ONETIME ONE Departure - Departure Time of Disposition: 01:23 Disposition: Home, Self-Care 01 Condition: Fair Clinical Impression: Epistaxis - Discharge Information *PRESCRIPTION DRUG MONITORING PROGRAM REVIEWED*: No *COPY OF PRESCRIPTION DRUG MONITORING REPORT IN PATIENT LONNIE: No Instructions: Nosebleed, [id number] Referrals: Estuardo Toussaint MD [Primary Care Provider] - Forms: ED Department Discharge Additional Instructions: You evaluate today on an emergent basis. At this time we did stop your nosebleed. I do recommend the continued use of a humidifier at home. Please get [place] [id number] and use throughout the day. Please return to the emergency department for any new or worsening bleeding. In addition on your x-ray there was a hiatal hernia. I would like you to follow-up with general surgery for monitoring and evaluation. [facility] - [facility] [address] [place] [address] [place] [address] [facility] - General Surgery Professional Building [address] [place] [address], [address] [place] [address] The patient is informed of any results of their evaluation and diagnostic workup and all questions are answered. They are given discharge instructions and return precautions. The patient is stable for discharge. The patient states they understand and agree with the plan and that they will return if their symptoms get worse or if they have any new concerns. The following information is given to patients seen in the emergency department who are being discharged to home. This information is to outline your options for follow-up care. We provide all patients seen in our emergency department with a follow-up referral. The need for follow-up, as well as the timing and circumstances, are variable depending upon the specifics of your emergency department visit. If you don't have a primary care physician on staff, we will provide you with a referral. We always advise you to contact your personal physician following an emergency department visit to inform them of the circumstance of the visit and for follow-up with them and/or the need for any referrals to a consulting specialist. The emergency department will also refer you to a specialist when appropriate. This referral assures that you have the opportunity for follow-up care with a specialist. All of these measure are taken in an effort to provide you with optimal care, which includes your follow-up. Under all circumstances we always encourage you to contact your private physician who remains a resource for coordinating your care. When calling for follow-up care, please make the office aware that this follow-up is from your recent emergency room visit. If for any reason you are refused follow-up, please contact the [facility] Emergency Department at and asked to speak to the emergency department charge nurse. Sepsis Event Note (ED) - Evaluation Sepsis Screening Result: No Definite Risk - Focused Exam Vital Signs: Vital Signs Temp Pulse Resp BP Pulse Ox 01/23/21 23:09 96 18 153/82 H 95 01/23/21 22:24 36.1 C 103 H 18 146/113 H 90 L
--- NOTE | 2021-01-24 03:11 | PCM.EKG ---
#1 Interpretation EKG Date: 01/23/21 Time: 20:52 Rhythm: A-Fib Rate (Beats/Min): 78 [place]: LAD-Left [place] Deviation P-Wave: Absent QRS: Normal (Q waves in leads II, III, aVF, V2-V6) ST-T: Normal QT: Normal Comparison: No Change (11/13/14) EKG Interpretation Comments: Atrial fibrillation with occasional PVC and inferior and anterolateral Q waves
== END 2021-01-24 01:40 | disposition home or self-care (01) ==
LOC: MW.ED 22:12
DX: R04.0 Epistaxis (principal); K44.9 Diaphragmatic hernia without obstruction or gangrene; E03.9 Hypothyroidism, unspecified; Z79.01 Long term (current) use of anticoagulants; Z79.899 Other long term (current) drug therapy; Z88.1 Allergy status to other antibiotic agents
CPT/HCPCS: 30901; 36415; 71045; 71045-26; 80048; 83735; 83880; 84484; 85025; 85610; 85730; 93005; 93010; 99282; 99284-25

== ENCOUNTER 2021-04-24 23:30 | Emergency (ER) | payer MEDICARE, OTHER ==
[2021-04-24] MEDS ORDERED: Lidocaine 1% with EPINEPHrine 1:100,000 20 ML MDV INJECT ONE (23:37)
--- NOTE | 2021-04-24 23:37 | EDM.PDOC ---
ED HPI GENERAL MEDICAL PROBLEM - General Chief Complaint: ENT Problem Stated Complaint: NOSE BLEED Time Seen by Provider: 04/24/21 23:34 Source of Information: Reports: Patient History Limitations: Reports: No Limitations - History of Present Illness INITIAL COMMENTS - FREE TEXT/NARRATIVE: 80-year-old female past medical history hypertension, atrial fibrillation on anticoagulation, frequent epistaxis presents for epistaxis. This is patient's fifth ER visit for similar. She notes it is always from the left nare and happen spontaneously despite not picking her nose and no reported trauma. Nosebleed tonight started around 2 hours ago. She does not feel dizzy, lightheaded, presyncopal, denies chest pain, she does feel some shortness of breath and can feel blood running down the back of her throat. She has tried manual pressure for about 2 hours without relief. - Related Data Allergies Allergy/AdvReac Type Severity Reaction Status Date / Time ciprofloxacin HCl Allergy Numbness Verified 01/23/21 22:23 [From Cipro] Home Meds: Home Meds Levothyroxine [Levothroid] 137 mcg PO DAILY 11/14/14 [History] Digoxin [Lanoxin] 250 mcg PO DAILY #30 tablet 11/18/14 [Rx] Furosemide [Lasix] 20 mg PO DAILY #30 tab 11/18/14 [Rx] Metoprolol Tartrate 100 mg PO BID #60 tablet 11/18/14 [Rx] Apixaban [Eliquis] 1 tab PO BID 11/09/19 [History] Past Medical History HEENT History: Reports: Epistaxis Cardiovascular History: Reports: Afib, Cardiomyopathy Respiratory History: Reports: None Gastrointestinal History: Reports: None Genitourinary History: Reports: None 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 Musculoskeletal History: Reports: None Neurological History: Reports: None Psychiatric History: Reports: None Endocrine/Metabolic History: Reports: Hypothyroidism Hematologic History: Reports: None Immunologic History: Reports: None Oncologic (Cancer) History: Reports: Uterine Dermatologic History: Reports: None - Infectious Disease History Infectious Disease History: Reports: Chicken Pox, Measles, Mumps - Past Surgical History Head Surgeries/Procedures: Reports: None HEENT Surgical History: Reports: None Cardiovascular Surgical History: Reports: None Respiratory Surgical History: Reports: None GI Surgical History: Reports: None Female Surgical History: Reports: Hysterectomy Endocrine Surgical History: Reports: None Neurological Surgical History: Reports: None Musculoskeletal Surgical History: Reports: None Dermatological Surgical History: Reports: None Social & Family History - Family History Family Medical History: No Pertinent Family History - Caffeine Use Caffeine Use: Reports: None ED ROS GENERAL - Review of Systems Review Of Systems: Comprehensive ROS is negative, except as noted in HPI. ED EXAM, GENERAL - Physical Exam Exam: See Below Exam Limited By: No Limitations General Appearance: Alert, WD/WN, No Apparent Distress Ears: Hearing Grossly Normal Nose: Other (large amount of bleeding w/ clots from L nare) Throat/Mouth: Normal Voice, No Airway Compromise, Other (large amount of intraoral blood with blood running down oropharynx) Head: Atraumatic, Normocephalic Neck: Normal Inspection Respiratory/Chest: No Respiratory Distress, Lungs Clear, Normal Breath Sounds, N o Accessory Muscle Use Cardiovascular: Normal Peripheral Pulses Extremities: Normal Inspection Neurological: Alert, Normal Cognition Psychiatric: Normal Affect, Normal Mood Skin Exam: Warm, Dry, Intact, Normal Color Course - Vital Signs Last Recorded V/S: Last Vital Signs Temp 97.3 F 04/24/21 23:32 Pulse 78 04/25/21 01:36 Resp 18 04/25/21 01:36 BP 168/97 H 04/25/21 01:36 Pulse Ox 96 04/25/21 01:36 - Orders/Labs/Meds Labs: Laboratory Tests 04/25/21 04/25/21 Range/Units 00:29 00:29 WBC 8.54 (4.0-11.0) K/uL RBC 5.33 (4.30-5.90) M/uL Hgb 16.8 H (12.0-16.0) g/dL Hct 51.8 H (36.0-46.0) % MCV 97.2 (80.0-98.0) fL MCH 31.5 (27.0-32.0) pg MCHC 32.4 (31.0-37.0) g/dL RDW Std Deviation 52.4 (28.0-62.0) fl RDW Coeff of Pearl 15 (11.0-15.0) % Plt Count 166 (150-400) K/uL MPV 11.20 (7.40-12.00) fL Neut % (Auto) 79.3 (48.0-80.0) % Lymph % (Auto) 11.5 L (16.0-40.0) % [place] % (Auto) 7.5 (0.0-15.0) % Eos % (Auto) 1.2 (0.0-7.0) % Baso % (Auto) 0.5 (0.0-1.5) % Neut # (Auto) 6.8 H (1.4-5.7) K/uL Lymph # (Auto) 1.0 (0.6-2.4) K/uL [place] # (Auto) 0.6 (0.0-0.8) K/uL Eos # (Auto) 0.1 (0.0-0.7) K/uL Baso # (Auto) 0.0 (0.0-0.1) K/uL Sodium 142 (136-145) mmol/L Potassium 4.9 (3.5-5.1) mmol/L Chloride 103 (98-107) mmol/L Carbon Dioxide 34.7 H (21.0-32.0) mmol/L BUN 25 H (7.0-18.0) mg/dL Creatinine 1.0 (0.6-1.0) mg/dL Est Cr Clr Drug Dosing TNP Estimated GFR (MDRD) 53.3 ml/min Glucose 154 H (74-106) mg/dL Calcium 8.8 (8.5-10.1) mg/dL Meds: Medications Discontinued Medications Generic Name Dose Route Start Last Admin Trade Name Freq PRN Reason Stop Dose Admin Lidocaine/Epinephrine 20 ml 04/24/21 23:37 04/25/21 00:34 Lidocaine 1% With Epinephrine 1:100,000 20 Ml Mdv INJECT 04/24/21 23:38 20 ml ONETIME ONE Administration Oxymetazoline HCl 1 ml 04/25/21 00:05 04/25/21 00:34 Oxymetazoline 0.05% Nasal [place] 15 Ml Bottle VINH 04/25/21 00:06 1 ml ONETIME ONE Administration - Re-Assessments/Exams Free Text/Narrative Re-Assessment/Exam: 04/24/21 23:37 Will get basic labs to ensure no significant blood loss anemia. Patient has large amount of bleeding and I believe will require a nasal tampon. At this time she declines nasal tampon. Will continue direct pressure and reassess. 04/25/21 02:01 Bleeding well controlled with direct pressure. She has been without nasal pressure x1-hr and still no active bleeding. Will d/c with ENT f/u Departure - Departure Time of Disposition: 02:01 Disposition: Home, Self-Care 01 Condition: Good Clinical Impression: Epistaxis - Discharge Information Instructions: Nosebleed, Adult Forms: ED Department Discharge Additional Instructions: ENT follow-up: Dr. John Shook [facility], [address] [place], [place] [id number] Dr. Christian Mckenna [facility] [address] [place] [address] The following information is given to patients seen in the emergency department who are being discharged to home. This information is to outline your options for follow-up care. We provide all patients seen in our emergency department with a follow-up referral. The need for follow-up, as well as the timing and circumstances, are variable depending upon the specifics of your emergency department visit. If you don't have a primary care physician on staff, we will provide you with a referral. We always advise you to contact your personal physician following an emergency department visit to inform them of the circumstance of the visit and for follow-up with them and/or the need for any referrals to a consulting spe cialist. The emergency department will also refer you to a specialist when appropriate. This referral assures that you have the opportunity for follow-up care with a specialist. All of these measure are taken in an effort to provide you with optimal care, which includes your follow-up. Under all circumstances we always encourage you to contact your private physician who remains a resource for coordinating your care. When calling for follow-up care, please make the office aware that this follow-up is from your recent emergency room visit. If for any reason you are refused follow-up, please contact the [facility] Emergency Department at and asked to speak to the emergency department charge nurse. Please follow up with your primary care physician. If you do not have a primary care physician, see below: [facility] [address] [place] [address] [facility] [address] [place], [place] [address] [facility] - Pediatric [facility] [address] [place] [address] Sepsis Event Note (ED) - Focused Exam Vital Signs: Vital Signs Temp Pulse Resp BP Pulse Ox 04/25/21 01:36 78 18 168/97 H 96 04/24/21 23:32 97.3 F 83 18 173/116 H 97
[2021-04-25] MEDS ORDERED: Oxymetazoline 0.05% Nasal Spray 15 ML Bottle NAS ONE (00:05)
[2021-04-25 00:49] LABS: BLOOD UREA NITROGEN,BUN 25 mg/dL (7.0-18.0); CARBON DIOXIDE,CO2 34.7 mmol/L (21.0-32.0); CHLORIDE,CL 103 mmol/L (98-107); GLUCOSE RANDOM 154 mg/dL (74-106); POTASSIUM,K 4.9 mmol/L (3.5-5.1); SODIUM,NA 142 mmol/L (136-145)
[2021-04-25 01:37] VITALS: PULSE 78
[2021-04-25 02:14] VITALS: BP 163/96
== END 2021-04-25 02:14 | disposition home or self-care (01) ==
LOC: MW.ED 23:30
DX: R04.0 Epistaxis (principal); I48.91 Unspecified atrial fibrillation; E03.9 Hypothyroidism, unspecified; Z79.01 Long term (current) use of anticoagulants; Z79.899 Other long term (current) drug therapy; Z88.1 Allergy status to other antibiotic agents
CPT/HCPCS: 36415; 80048; 85025; 99283

== ENCOUNTER 2022-02-01 17:37 | Inpatient (IN) | payer MEDICARE, OTHER ==
[2022-02-01] MEDS ORDERED: methylPREDNISolone Sodium Succinate 125 MG/2 ML SDV IVPUSH ONE (17:40)
[2022-02-01] MEDS ORDERED: Albuterol/Ipratropium 3.0-0.5 MG/3 ML Neb Soln NEB STA (17:41)
[2022-02-01] MEDS ORDERED: Albuterol 0.5% 5 MG/ML Neb Soln 20 ML Bottle NEB STA (17:42)
[2022-02-01] MEDS ORDERED: Albuterol/Ipratropium 3.0-0.5 MG/3 ML Neb Soln ONE (17:43)
[2022-02-01 18:31] LABS: CARBON DIOXIDE,CO2 28.8 mmol/L (21.0-32.0); POTASSIUM,K 3.8 mmol/L (3.5-5.1)
[2022-02-01] MEDS ORDERED: Furosemide 40 MG/4 ML VIAL IVPUSH STA (18:32)
[2022-02-01 19:48] LABS: CORONAVIRUS COVID-19 NAA NEGATIVE (NEGATIVE); INFLUENZA A NAA NEGATIVE (NEGATIVE); INFLUENZA B NAA NEGATIVE (NEGATIVE)
[2022-02-01] MEDS ORDERED: Albuterol/Ipratropium 3.0-0.5 MG/3 ML Neb Soln NEB PRN (19:59)
[2022-02-01] MEDS ORDERED: Non-Formulary Medication 1 Each (Metoprolol Tartrate 100 MG Tablet) PO SCH (21:00)
[2022-02-01] MEDS: Apixaban 2.5 MG Tab PO SCH (22:34)
[2022-02-01] MEDS: Furosemide 40 MG/4 ML VIAL IVPUSH SCH (22:49)
[2022-02-01] MEDS ORDERED: Metoprolol Tartrate 25 MG Tab PO ONE (23:00)
[2022-02-01] MEDS: Losartan 50 MG Tab PO SCH (23:07)
[2022-02-02 07:08] LABS: CARBON DIOXIDE,CO2 26.8 mmol/L (21.0-32.0); POTASSIUM,K 4.1 mmol/L (3.5-5.1)
[2022-02-02] MEDS: Levothyroxine 25 MCG Tab PO SCH (08:10)
[2022-02-02] MEDS: Levothyroxine 112 MCG Tab PO SCH (08:10)
[2022-02-02] MEDS: Furosemide 40 MG/4 ML VIAL IVPUSH SCH ×2 (08:11→20:27)
[2022-02-02] MEDS: Digoxin 250 MCG Tab PO SCH (08:11)
[2022-02-02] MEDS: methylPREDNISolone Sodium Succinate 40 MG/1 ML SDV IVPUSH SCH (08:11)
[2022-02-02] MEDS: Apixaban 2.5 MG Tab PO SCH ×2 (08:11→20:25)
[2022-02-02] MEDS ORDERED: Metoprolol Tartrate 50 MG Tab PO SCH (09:00)
[2022-02-02] MEDS ORDERED: Non-Formulary Medication 1 Each (Levothyroxine [Levothroid] 137 MCG Tablet) PO SCH (09:00)
[2022-02-02] MEDS: Losartan 50 MG Tab PO SCH (20:23)
[2022-02-02] MEDS: Metoprolol Tartrate 25 MG Tab PO SCH (20:26)
[2022-02-03] MEDS: Levothyroxine 112 MCG Tab PO SCH (06:35)
[2022-02-03] MEDS: Levothyroxine 25 MCG Tab PO SCH (06:35)
[2022-02-03 07:23] LABS: CARBON DIOXIDE,CO2 31.4 mmol/L (21.0-32.0); POTASSIUM,K 3.6 mmol/L (3.5-5.1)
[2022-02-03] MEDS: Digoxin 250 MCG Tab PO SCH (08:16)
[2022-02-03] MEDS: methylPREDNISolone Sodium Succinate 40 MG/1 ML SDV IVPUSH SCH (08:16)
[2022-02-03] MEDS: Apixaban 2.5 MG Tab PO SCH ×2 (08:16→20:14)
[2022-02-03] MEDS: Furosemide 40 MG/4 ML VIAL IVPUSH SCH ×2 (08:17→20:14)
[2022-02-03] MEDS: Metoprolol Tartrate 25 MG Tab PO SCH ×2 (09:30→20:15)
[2022-02-03] MEDS: Losartan 50 MG Tab PO SCH (20:14)
[2022-02-04] MEDS: Levothyroxine 112 MCG Tab PO SCH (06:30)
[2022-02-04] MEDS: Levothyroxine 25 MCG Tab PO SCH (06:30)
[2022-02-04 07:19] LABS: BLOOD UREA NITROGEN,BUN 35 mg/dL (7.0-18.0); CARBON DIOXIDE,CO2 30.4 mmol/L (21.0-32.0); CHLORIDE,CL 104 mmol/L (98-107); GLUCOSE RANDOM 108 mg/dL (74-106); POTASSIUM,K 5.1 mmol/L (3.5-5.1); SODIUM,NA 141 mmol/L (136-145)
[2022-02-04] MEDS: Metoprolol Tartrate 50 MG Tab PO SCH ×2 (10:27→20:28)
[2022-02-04] MEDS: Apixaban 2.5 MG Tab PO SCH ×2 (10:28→20:28)
[2022-02-04] MEDS: Digoxin 250 MCG Tab PO SCH (10:28)
[2022-02-04] MEDS: Furosemide 40 MG/4 ML VIAL IVPUSH SCH ×2 (10:29→20:27)
[2022-02-04] MEDS: methylPREDNISolone Sodium Succinate 40 MG/1 ML SDV IVPUSH SCH (10:29)
[2022-02-04] MEDS: Losartan 50 MG Tab PO SCH (20:28)
[2022-02-05] MEDS: Levothyroxine 25 MCG Tab PO SCH (06:30)
[2022-02-05] MEDS: Levothyroxine 112 MCG Tab PO SCH (06:31)
[2022-02-05 07:05] LABS: BLOOD UREA NITROGEN,BUN 40 mg/dL (7.0-18.0); CARBON DIOXIDE,CO2 32.6 mmol/L (21.0-32.0); CHLORIDE,CL 103 mmol/L (98-107); GLUCOSE RANDOM 104 mg/dL (74-106); POTASSIUM,K 4.5 mmol/L (3.5-5.1); SODIUM,NA 141 mmol/L (136-145)
[2022-02-05] MEDS: Apixaban 2.5 MG Tab PO SCH ×2 (09:06→20:40)
[2022-02-05] MEDS: Digoxin 250 MCG Tab PO SCH (09:06)
[2022-02-05] MEDS: methylPREDNISolone Sodium Succinate 40 MG/1 ML SDV IVPUSH SCH (09:06)
[2022-02-05] MEDS: Furosemide 40 MG/4 ML VIAL IVPUSH SCH ×2 (09:06→20:40)
[2022-02-05] MEDS: Metoprolol Tartrate 50 MG Tab PO SCH ×2 (09:06→20:40)
[2022-02-05] MEDS: Losartan 50 MG Tab PO SCH (20:39)
[2022-02-06] MEDS: Levothyroxine 112 MCG Tab PO SCH (06:32)
[2022-02-06] MEDS: Levothyroxine 25 MCG Tab PO SCH (06:32)
[2022-02-06 07:14] LABS: BLOOD UREA NITROGEN,BUN 40 mg/dL (7.0-18.0); CHLORIDE,CL 103 mmol/L (98-107); GLUCOSE RANDOM 99 mg/dL (74-106); POTASSIUM,K 3.8 mmol/L (3.5-5.1); SODIUM,NA 143 mmol/L (136-145)
[2022-02-06] MEDS: Metoprolol Tartrate 50 MG Tab PO SCH (08:21)
[2022-02-06] MEDS: Apixaban 2.5 MG Tab PO SCH (08:21)
[2022-02-06] MEDS: Furosemide 40 MG/4 ML VIAL IVPUSH SCH (08:21)
[2022-02-06] MEDS: Digoxin 250 MCG Tab PO SCH (08:24)
[2022-02-06 15:06] VITALS: BP 147/93; PULSE 65
== END 2022-02-06 13:35 | disposition home health service (06) | DRG 291 ==
LOC: MW.ED 17:37 → MW.MS 19:51
PROVIDERS: ADMIT Internal Medicine; ATTEND Internal Medicine
DX: I50.33 Acute on chronic diastolic (congestive) heart failure (principal); I50.9 Heart failure, unspecified; J96.01 Acute respiratory failure with hypoxia; J44.1 Chronic obstructive pulmonary disease with (acute) exacerbation; I42.9 Cardiomyopathy, unspecified; Z20.822 Contact with and (suspected) exposure to COVID-19; I48.91 Unspecified atrial fibrillation; E03.9 Hypothyroidism, unspecified; Z79.890 Hormone replacement therapy; Z79.01 Long term (current) use of anticoagulants; Z79.899 Other long term (current) drug therapy; Z88.1 Allergy status to other antibiotic agents; Z85.42 Personal history of malignant neoplasm of other parts of uterus; Z86.19 Personal history of other infectious and parasitic diseases; Z90.710 Acquired absence of both cervix and uterus; Z86.16 Personal history of COVID-19; K59.00 Constipation, unspecified
CPT/HCPCS: 0240U; 36415; 36600; 71045; 80048; 80053; 80162; 82803; 83735; 83880; 84100; 84484; 85025; 93005; 93306; 96374; 99285; A9270-GY; J1940; J2920; J2930; J7620-GY

== ENCOUNTER 2022-09-09 17:24 | Inpatient (IN) | payer MEDICARE, OTHER ==
[2022-09-09 20:07] LABS: CARBON DIOXIDE,CO2 31.1 mmol/L (21.0-32.0); POTASSIUM,K 4.8 mmol/L (3.5-5.1)
[2022-09-09 20:18] LABS: CORONAVIRUS COVID-19 NAA NEGATIVE (NEGATIVE); INFLUENZA A NAA NEGATIVE (NEGATIVE); INFLUENZA B NAA NEGATIVE (NEGATIVE); RESPIRATORY SYNCYTIAL VIR NAA NEGATIVE (NEGATIVE)
[2022-09-09] MEDS ORDERED: Furosemide 40 MG/4 ML VIAL IVPUSH STA (21:08)
[2022-09-09] MEDS ORDERED: Albuterol/Ipratropium 3.0-0.5 MG/3 ML Neb Soln NEB PRN (23:11)
[2022-09-09] MEDS ORDERED: Heparin Sodium 5,000 Units/ML Vial SUBCUT SCH (23:15)
[2022-09-09] MEDS: Apixaban 2.5 MG Tab PO SCH (23:58)
[2022-09-10] MEDS: Levothyroxine 25 MCG Tab PO SCH (06:41)
[2022-09-10] MEDS: Levothyroxine 112 MCG Tab PO SCH (06:42)
[2022-09-10] MEDS ORDERED: Polyethylene Glycol 3350 Powder 17 GM Packet PO PRN (07:31)
[2022-09-10] MEDS ORDERED: Ondansetron 4 MG/2 ML SDV IVPUSH PRN (07:31)
[2022-09-10 07:54] LABS: CARBON DIOXIDE,CO2 28.6 mmol/L (21.0-32.0); POTASSIUM,K 4.3 mmol/L (3.5-5.1)
[2022-09-10] MEDS: Apixaban 2.5 MG Tab PO SCH ×2 (08:29→20:55)
[2022-09-10] MEDS ORDERED: Furosemide 40 MG/4 ML VIAL IVPUSH SCH (09:00)
[2022-09-10] MEDS: Furosemide 40 MG/4 ML VIAL IVPUSH SCH ×2 (09:30→14:53)
[2022-09-10] MEDS: Losartan 50 MG Tab PO SCH (20:56)
[2022-09-10] MEDS: Acetaminophen 325 MG Tab PO PRN (23:48)
[2022-09-11] MEDS: Acetaminophen 325 MG Tab PO PRN ×2 (04:47→20:05)
[2022-09-11] MEDS: Levothyroxine 25 MCG Tab PO SCH (06:33)
[2022-09-11] MEDS: Levothyroxine 112 MCG Tab PO SCH (06:33)
[2022-09-11 07:47] LABS: CARBON DIOXIDE,CO2 30.8 mmol/L (21.0-32.0); POTASSIUM,K 4.1 mmol/L (3.5-5.1)
[2022-09-11] MEDS: Furosemide 40 MG/4 ML VIAL IVPUSH SCH ×5 (07:56→22:04)
[2022-09-11] MEDS: Apixaban 2.5 MG Tab PO SCH ×2 (08:00→20:06)
[2022-09-11] MEDS ORDERED: Furosemide 40 MG/4 ML VIAL IVPUSH ONE (10:21)
[2022-09-11] MEDS: Losartan 50 MG Tab PO SCH (20:11)
[2022-09-12 06:36] LABS: CARBON DIOXIDE,CO2 30.1 mmol/L (21.0-32.0); POTASSIUM,K 3.7 mmol/L (3.5-5.1)
[2022-09-12] MEDS: Furosemide 40 MG/4 ML VIAL IVPUSH SCH ×3 (06:54→21:04)
[2022-09-12] MEDS: Levothyroxine 25 MCG Tab PO SCH (06:54)
[2022-09-12] MEDS: Levothyroxine 112 MCG Tab PO SCH (06:54)
[2022-09-12] MEDS: Apixaban 2.5 MG Tab PO SCH ×2 (09:56→21:04)
[2022-09-12] MEDS: Metoprolol Tartrate 50 MG Tab PO SCH ×2 (11:13→21:04)
[2022-09-13] MEDS: Furosemide 40 MG/4 ML VIAL IVPUSH SCH ×3 (06:30→22:09)
[2022-09-13] MEDS: Levothyroxine 25 MCG Tab PO SCH (06:30)
[2022-09-13] MEDS: Levothyroxine 112 MCG Tab PO SCH (06:34)
[2022-09-13 08:01] LABS: CARBON DIOXIDE,CO2 28.9 mmol/L (21.0-32.0); POTASSIUM,K 3.4 mmol/L (3.5-5.1)
[2022-09-13] MEDS ORDERED: Potassium Chloride 20 MEQ Tab.ER PO ONE (09:30)
[2022-09-13] MEDS: Metoprolol Tartrate 50 MG Tab PO SCH ×2 (09:47→20:21)
[2022-09-13] MEDS: Apixaban 2.5 MG Tab PO SCH ×2 (09:47→20:21)
[2022-09-13] MEDS: Digoxin 125 MCG Tab PO SCH (12:10)
[2022-09-13] MEDS: Losartan 50 MG Tab PO SCH (20:22)
[2022-09-14] MEDS: Levothyroxine 112 MCG Tab PO SCH (06:32)
[2022-09-14] MEDS: Levothyroxine 25 MCG Tab PO SCH (06:32)
[2022-09-14] MEDS: Furosemide 40 MG/4 ML VIAL IVPUSH SCH ×3 (06:54→21:07)
[2022-09-14] MEDS ORDERED: Metoprolol Succinate 100 MG Tab.ER PO SCH (09:00)
[2022-09-14] MEDS: Apixaban 2.5 MG Tab PO SCH ×2 (09:47→21:07)
[2022-09-14] MEDS: Digoxin 125 MCG Tab PO SCH (09:55)
[2022-09-15] MEDS: Furosemide 40 MG/4 ML VIAL IVPUSH SCH ×3 (06:12→21:43)
[2022-09-15] MEDS: Levothyroxine 25 MCG Tab PO SCH (06:50)
[2022-09-15] MEDS: Levothyroxine 112 MCG Tab PO SCH (06:51)
[2022-09-15] MEDS ORDERED: Potassium Chloride 20 MEQ Tab.ER PO ONE (08:30)
[2022-09-15] MEDS: Apixaban 2.5 MG Tab PO SCH ×2 (09:12→21:43)
[2022-09-15] MEDS: Digoxin 125 MCG Tab PO SCH (09:13)
[2022-09-16] MEDS: Levothyroxine 112 MCG Tab PO SCH (06:55)
[2022-09-16] MEDS: Furosemide 40 MG/4 ML VIAL IVPUSH SCH ×3 (06:55→22:09)
[2022-09-16] MEDS: Apixaban 2.5 MG Tab PO SCH ×2 (08:13→22:09)
[2022-09-16] MEDS: Digoxin 125 MCG Tab PO SCH (08:13)
[2022-09-16] MEDS: Levothyroxine 25 MCG Tab PO SCH (09:00)
[2022-09-16 12:45] LABS: CARBON DIOXIDE,CO2 30.6 mmol/L (21.0-32.0); POTASSIUM,K 4.7 mmol/L (3.5-5.1)
[2022-09-17] MEDS ORDERED: Magnesium Sulfate/Water 2 GM in Premix Bag 1 BAG IV ONE (01:30)
[2022-09-17] MEDS: Furosemide 40 MG/4 ML VIAL IVPUSH SCH ×3 (06:18→21:29)
[2022-09-17] MEDS: Levothyroxine 25 MCG Tab PO SCH (06:48)
[2022-09-17] MEDS: Levothyroxine 112 MCG Tab PO SCH (06:49)
[2022-09-17 07:08] LABS: CARBON DIOXIDE,CO2 30.5 mmol/L (21.0-32.0); POTASSIUM,K 3.6 mmol/L (3.5-5.1)
[2022-09-17] MEDS: Apixaban 2.5 MG Tab PO SCH ×2 (10:03→21:29)
[2022-09-17] MEDS: Digoxin 125 MCG Tab PO SCH (10:03)
[2022-09-17] MEDS: Sodium Chloride 0.65% Nasal Spray 45 ML Bottle NAS PRN (17:41)
[2022-09-18] MEDS: Levothyroxine 112 MCG Tab PO SCH (06:35)
[2022-09-18] MEDS: Levothyroxine 25 MCG Tab PO SCH (06:35)
[2022-09-18] MEDS: Furosemide 40 MG/4 ML VIAL IVPUSH SCH ×3 (06:36→22:04)
[2022-09-18] MEDS: Digoxin 125 MCG Tab PO SCH (08:43)
[2022-09-18] MEDS: Apixaban 2.5 MG Tab PO SCH ×2 (08:43→21:52)
[2022-09-18] MEDS: Sodium Chloride 0.65% Nasal Spray 45 ML Bottle NAS PRN (23:52)
[2022-09-19] MEDS: Levothyroxine 112 MCG Tab PO SCH (06:37)
[2022-09-19] MEDS: Furosemide 40 MG/4 ML VIAL IVPUSH SCH ×2 (06:37→13:26)
[2022-09-19] MEDS: Levothyroxine 25 MCG Tab PO SCH (06:38)
[2022-09-19 07:46] LABS: CARBON DIOXIDE,CO2 34.5 mmol/L (21.0-32.0); POTASSIUM,K 2.9 mmol/L (3.5-5.1)
[2022-09-19] MEDS: Digoxin 125 MCG Tab PO SCH (09:32)
[2022-09-19] MEDS: Apixaban 2.5 MG Tab PO SCH (09:32)
[2022-09-19] MEDS ORDERED: Potassium Chloride 100 ML IV SCH (10:15)
[2022-09-19] MEDS: Potassium Chloride 20 MEQ Tab.ER PO SCH ×2 (11:18→15:04)
[2022-09-19 14:21] LABS: CARBON DIOXIDE,CO2 34.5 mmol/L (21.0-32.0); POTASSIUM,K 3.2 mmol/L (3.5-5.1)
[2022-09-19] MEDS ORDERED: Metoprolol Tartrate 50 MG Tab PO SCH (14:45)
[2022-09-19 15:05] VITALS: BP 143/89; PULSE 82
== END 2022-09-19 17:10 | disposition home health service (06) | DRG 291 ==
LOC: MW.ED 17:24 → MW.MS 21:10
PROVIDERS: ADMIT Student in an Organized Health Care Education/Training Program; ATTEND Student in an Organized Health Care Education/Training Program
DX: I11.0 Hypertensive heart disease with heart failure (principal); I50.30 Unspecified diastolic (congestive) heart failure; J96.01 Acute respiratory failure with hypoxia; I50.33 Acute on chronic diastolic (congestive) heart failure; I42.9 Cardiomyopathy, unspecified; M19.90 Unspecified osteoarthritis, unspecified site; J96.21 Acute and chronic respiratory failure with hypoxia; Z79.01 Long term (current) use of anticoagulants; E03.9 Hypothyroidism, unspecified; Z96.651 Presence of right artificial knee joint; I48.91 Unspecified atrial fibrillation; Z66 Do not resuscitate; Z20.822 Contact with and (suspected) exposure to COVID-19; Z87.891 Personal history of nicotine dependence; Z88.1 Allergy status to other antibiotic agents; Z86.16 Personal history of COVID-19; Z90.49 Acquired absence of other specified parts of digestive tract; Z90.710 Acquired absence of both cervix and uterus; Z79.890 Hormone replacement therapy; Z79.899 Other long term (current) drug therapy
CPT/HCPCS: 0241U; 36415; 71045; 80048; 80053; 80162; 83605; 83735; 83880; 84100; 84484; 85025; 85610; 87040; 93005; 93306; 96374; 97161; 97530; 99291; A9270-GY; J1940; J3475

== ENCOUNTER 2023-01-05 12:10 | Inpatient (IN) | payer MEDICARE, OTHER ==
[2023-01-05] MEDS ORDERED: Sodium Chloride 0.9% 10 ML Syringe FLUSH PRN (12:25)
[2023-01-05] MEDS ORDERED: Sodium Chloride 0.9% 2.5 ML Syringe FLUSH PRN (12:25)
[2023-01-05] MEDS ORDERED: Furosemide 40 MG/4 ML VIAL IVPUSH ONE (12:31)
[2023-01-05 13:45] LABS: CARBON DIOXIDE,CO2 26.7 mmol/L (21.0-32.0); POTASSIUM,K 4.6 mmol/L (3.5-5.1)
[2023-01-05] MEDS ORDERED: Sodium Chloride 0.9% 500 ML IV SCH (14:15)
[2023-01-05] MEDS ORDERED: Ondansetron 4 MG Tab.DIS PO PRN (17:00)
[2023-01-05] MEDS ORDERED: Ondansetron 4 MG/2 ML SDV IVPUSH PRN (17:00)
[2023-01-05] MEDS ORDERED: Acetaminophen 325 MG Tab PO PRN (17:00)
[2023-01-05] MEDS ORDERED: Bisacodyl 5 MG Tab PO PRN (17:01)
[2023-01-05] MEDS ORDERED: Albuterol/Ipratropium 3.0-0.5 MG/3 ML Neb Soln NEB PRN (18:00)
[2023-01-05] MEDS: Furosemide 20 MG/2 ML VIAL IVPUSH SCH (21:23)
[2023-01-05] MEDS: Apixaban 2.5 MG Tab PO SCH (21:23)
[2023-01-06 06:54] LABS: CARBON DIOXIDE,CO2 26.4 mmol/L (21.0-32.0); POTASSIUM,K 4.4 mmol/L (3.5-5.1)
[2023-01-06] MEDS ORDERED: Non-Formulary Medication 1 Each (Levothyroxine [Levothroid] 137 MCG Tablet) PO SCH (09:00)
[2023-01-06] MEDS: Furosemide 20 MG/2 ML VIAL IVPUSH SCH ×4 (09:36→22:01)
[2023-01-06] MEDS: Potassium Chloride 10 MEQ Tab.ER PO SCH (09:36)
[2023-01-06] MEDS: Apixaban 2.5 MG Tab PO SCH ×2 (11:11→21:31)
[2023-01-06] MEDS: Docusate Sodium 100 MG Cap PO PRN (21:31)
[2023-01-07] MEDS: Furosemide 20 MG/2 ML VIAL IVPUSH SCH ×4 (06:40→23:04)
[2023-01-07] MEDS: Apixaban 2.5 MG Tab PO SCH ×2 (08:12→21:30)
[2023-01-07] MEDS: Potassium Chloride 10 MEQ Tab.ER PO SCH (08:12)
[2023-01-07 09:09] LABS: CARBON DIOXIDE,CO2 26.5 mmol/L (21.0-32.0)
[2023-01-07 09:14] LABS: POTASSIUM,K 5.1 mmol/L (3.5-5.1)
[2023-01-07] MEDS ORDERED: Mirtazapine 15 MG Tab.DIS PO SCH (21:00)
[2023-01-08] MEDS: Furosemide 20 MG/2 ML VIAL IVPUSH SCH ×3 (06:41→22:56)
[2023-01-08 09:03] LABS: CARBON DIOXIDE,CO2 26.9 mmol/L (21.0-32.0); POTASSIUM,K 3.9 mmol/L (3.5-5.1)
[2023-01-08] MEDS: Apixaban 2.5 MG Tab PO SCH ×2 (10:22→21:14)
[2023-01-08] MEDS: Potassium Chloride 10 MEQ Tab.ER PO SCH (10:22)
[2023-01-08] MEDS ORDERED: Sodium Chloride 0.9% 2.5 ML Syringe FLUSH PRN (11:10)
[2023-01-08] MEDS ORDERED: Sodium Chloride 0.9% 10 ML Syringe FLUSH PRN (11:10)
[2023-01-08] MEDS: Mirtazapine 15 MG Tab.DIS PO SCH (21:14)
[2023-01-09] MEDS: Furosemide 20 MG/2 ML VIAL IVPUSH SCH (06:31)
[2023-01-09 08:25] LABS: CARBON DIOXIDE,CO2 28.6 mmol/L (21.0-32.0); POTASSIUM,K 3.9 mmol/L (3.5-5.1)
[2023-01-09] MEDS: Potassium Chloride 10 MEQ Tab.ER PO SCH (09:33)
[2023-01-09] MEDS: Apixaban 2.5 MG Tab PO SCH ×2 (09:34→20:28)
[2023-01-09] MEDS: Bumetanide 1 MG/4 ML MDV IVPUSH SCH ×2 (10:03→17:43)
[2023-01-09] MEDS: Mirtazapine 15 MG Tab.DIS PO SCH (20:28)
[2023-01-10] MEDS ORDERED: Bumetanide 1 MG/4 ML MDV ONE (01:48)
[2023-01-10] MEDS: Bumetanide 1 MG/4 ML MDV IVPUSH SCH ×3 (01:53→15:55)
[2023-01-10] MEDS ORDERED: Levothyroxine 112 MCG Tab ONE (06:10)
[2023-01-10] MEDS ORDERED: Levothyroxine 25 MCG Tab ONE ×2 (06:10→08:27)
[2023-01-10 08:20] LABS: CARBON DIOXIDE,CO2 25.8 mmol/L (21.0-32.0); POTASSIUM,K 3.7 mmol/L (3.5-5.1)
[2023-01-10] MEDS: Apixaban 2.5 MG Tab PO SCH ×2 (08:31→20:30)
[2023-01-10] MEDS: Potassium Chloride 10 MEQ Tab.ER PO SCH (08:32)
[2023-01-10] MEDS: Docusate Sodium 100 MG Cap PO PRN (14:14)
[2023-01-10] MEDS: Polyethylene Glycol 3350 Powder 17 GM Packet PO PRN (14:14)
[2023-01-10] MEDS ORDERED: Polyethylene Glycol 3350 Powder 17 GM Packet PO ONE (19:19)
[2023-01-10] MEDS: Mirtazapine 15 MG Tab.DIS PO SCH (20:30)
[2023-01-11] MEDS ORDERED: Levothyroxine 25 MCG Tab ONE (06:16)
[2023-01-11 06:51] LABS: CARBON DIOXIDE,CO2 21.4 mmol/L (21.0-32.0); POTASSIUM,K 3.8 mmol/L (3.5-5.1)
[2023-01-11] MEDS: Apixaban 2.5 MG Tab PO SCH ×2 (08:11→21:27)
[2023-01-11] MEDS: Bumetanide 1 MG/4 ML MDV IVPUSH SCH ×2 (08:11→13:51)
[2023-01-11] MEDS: Potassium Chloride 10 MEQ Tab.ER PO SCH (08:12)
[2023-01-11] MEDS ORDERED: Fluconazole 150 MG Tab PO ONE (08:56)
[2023-01-11] MEDS: Nystatin Susp 100,000 Unit/ML 5 ML UD Cup PO SCH ×3 (13:51→19:25)
[2023-01-11] MEDS: Mirtazapine 15 MG Tab.DIS PO SCH (21:27)
[2023-01-12] MEDS: Nystatin Susp 100,000 Unit/ML 5 ML UD Cup PO SCH ×4 (02:26→18:36)
[2023-01-12 06:00] LABS: CARBON DIOXIDE,CO2 29.1 mmol/L (21.0-32.0); POTASSIUM,K 3.6 mmol/L (3.5-5.1)
[2023-01-12] MEDS: Bumetanide 1 MG/4 ML MDV IVPUSH SCH ×2 (07:45→14:50)
[2023-01-12] MEDS: Potassium Chloride 10 MEQ Tab.ER PO SCH (08:11)
[2023-01-12] MEDS: Apixaban 2.5 MG Tab PO SCH ×2 (08:11→20:46)
[2023-01-12] MEDS: Polyethylene Glycol 3350 Powder 17 GM Packet PO PRN (08:38)
[2023-01-12] MEDS: Mirtazapine 15 MG Tab.DIS PO SCH (20:45)
[2023-01-13] MEDS: Nystatin Susp 100,000 Unit/ML 5 ML UD Cup PO SCH ×5 (00:01→23:48)
[2023-01-13 08:11] LABS: CARBON DIOXIDE,CO2 29.7 mmol/L (21.0-32.0); POTASSIUM,K 3.5 mmol/L (3.5-5.1)
[2023-01-13] MEDS: Potassium Chloride 10 MEQ Tab.ER PO SCH (08:11)
[2023-01-13] MEDS: Bumetanide 1 MG/4 ML MDV IVPUSH SCH ×2 (08:12→14:40)
[2023-01-13] MEDS: Apixaban 2.5 MG Tab PO SCH ×2 (08:12→20:24)
[2023-01-13] MEDS: Mirtazapine 15 MG Tab.DIS PO SCH (20:25)
[2023-01-14] MEDS: Nystatin Susp 100,000 Unit/ML 5 ML UD Cup PO SCH ×4 (06:04→23:11)
[2023-01-14 06:35] LABS: CARBON DIOXIDE,CO2 29.9 mmol/L (21.0-32.0); POTASSIUM,K 3.1 mmol/L (3.5-5.1)
[2023-01-14] MEDS ORDERED: Potassium Chloride 20 MEQ Tab.ER PO ONE (07:14)
[2023-01-14] MEDS: Apixaban 2.5 MG Tab PO SCH ×2 (08:37→20:31)
[2023-01-14] MEDS: Potassium Chloride 10 MEQ Tab.ER PO SCH (08:37)
[2023-01-14] MEDS: Bumetanide 1 MG/4 ML MDV IVPUSH SCH ×2 (08:38→13:50)
[2023-01-14] MEDS: Mirtazapine 15 MG Tab.DIS PO SCH (20:31)
[2023-01-15 06:06] LABS: CARBON DIOXIDE,CO2 30.4 mmol/L (21.0-32.0); POTASSIUM,K 3.2 mmol/L (3.5-5.1)
[2023-01-15] MEDS: Nystatin Susp 100,000 Unit/ML 5 ML UD Cup PO SCH ×3 (06:21→17:38)
[2023-01-15] MEDS: Bumetanide 1 MG/4 ML MDV IVPUSH SCH ×2 (09:21→14:20)
[2023-01-15] MEDS: Apixaban 2.5 MG Tab PO SCH ×2 (09:22→20:42)
[2023-01-15] MEDS: Potassium Chloride 20 MEQ Tab.ER PO SCH ×2 (09:51→13:14)
[2023-01-15] MEDS: Mirtazapine 15 MG Tab.DIS PO SCH (20:41)
[2023-01-16] MEDS: Nystatin Susp 100,000 Unit/ML 5 ML UD Cup PO SCH ×4 (00:45→18:25)
[2023-01-16] MEDS: Apixaban 2.5 MG Tab PO SCH ×2 (08:51→21:29)
[2023-01-16] MEDS: Potassium Chloride 20 MEQ Tab.ER PO SCH ×2 (09:03→12:16)
[2023-01-16] MEDS: Bumetanide 1 MG/4 ML MDV IVPUSH SCH ×2 (09:07→14:03)
[2023-01-16] MEDS: Mirtazapine 15 MG Tab.DIS PO SCH (21:29)
[2023-01-17] MEDS: Nystatin Susp 100,000 Unit/ML 5 ML UD Cup PO SCH ×4 (00:25→18:06)
[2023-01-17] MEDS: Bumetanide 1 MG/4 ML MDV IVPUSH SCH ×2 (07:53→14:18)
[2023-01-17] MEDS: Potassium Chloride 20 MEQ Tab.ER PO SCH ×2 (08:03→13:15)
[2023-01-17] MEDS: Apixaban 2.5 MG Tab PO SCH ×2 (08:04→20:11)
[2023-01-17 08:32] LABS: CARBON DIOXIDE,CO2 30.3 mmol/L (21.0-32.0); POTASSIUM,K 3.9 mmol/L (3.5-5.1)
[2023-01-17] MEDS: Mirtazapine 15 MG Tab PO SCH (20:11)
[2023-01-18] MEDS: Nystatin Susp 100,000 Unit/ML 5 ML UD Cup PO SCH ×4 (00:51→17:39)
[2023-01-18] MEDS: Bumetanide 1 MG/4 ML MDV IVPUSH SCH ×2 (08:09→15:15)
[2023-01-18] MEDS: Potassium Chloride 20 MEQ Tab.ER PO SCH ×2 (08:10→12:01)
[2023-01-18] MEDS: Apixaban 2.5 MG Tab PO SCH ×2 (08:10→20:25)
[2023-01-18 08:56] LABS: CARBON DIOXIDE,CO2 27.1 mmol/L (21.0-32.0); POTASSIUM,K 4.2 mmol/L (3.5-5.1)
[2023-01-18] MEDS: Mirtazapine 15 MG Tab PO SCH (20:25)
[2023-01-19] MEDS: Nystatin Susp 100,000 Unit/ML 5 ML UD Cup PO SCH ×2 (00:06→06:22)
[2023-01-19] MEDS: Potassium Chloride 20 MEQ Tab.ER PO SCH ×2 (08:10→12:08)
[2023-01-19] MEDS: Bumetanide 1 MG/4 ML MDV IVPUSH SCH ×2 (08:10→14:13)
[2023-01-19] MEDS: Apixaban 2.5 MG Tab PO SCH ×2 (08:10→21:32)
[2023-01-19] MEDS: Mirtazapine 15 MG Tab PO SCH (21:32)
[2023-01-20 06:24] LABS: CARBON DIOXIDE,CO2 27.8 mmol/L (21.0-32.0); POTASSIUM,K 4.5 mmol/L (3.5-5.1)
[2023-01-20] MEDS: Potassium Chloride 20 MEQ Tab.ER PO SCH ×2 (08:08→12:29)
[2023-01-20] MEDS: Bumetanide 1 MG/4 ML MDV IVPUSH SCH ×2 (08:08→14:17)
[2023-01-20] MEDS: Apixaban 2.5 MG Tab PO SCH ×2 (08:09→20:12)
[2023-01-20] MEDS: Mirtazapine 15 MG Tab PO SCH (20:12)
[2023-01-21] MEDS: Potassium Chloride 20 MEQ Tab.ER PO SCH ×2 (08:04→13:02)
[2023-01-21] MEDS: Apixaban 2.5 MG Tab PO SCH ×2 (08:04→20:04)
[2023-01-21] MEDS: Bumetanide 1 MG/4 ML MDV IVPUSH SCH ×2 (08:05→14:11)
[2023-01-21] MEDS: Mirtazapine 15 MG Tab PO SCH (20:04)
[2023-01-22 07:01] LABS: CARBON DIOXIDE,CO2 29.7 mmol/L (21.0-32.0); POTASSIUM,K 3.5 mmol/L (3.5-5.1)
[2023-01-22] MEDS: Apixaban 2.5 MG Tab PO SCH ×2 (08:46→20:22)
[2023-01-22] MEDS: Potassium Chloride 20 MEQ Tab.ER PO SCH ×2 (08:46→12:43)
[2023-01-22] MEDS: Bumetanide 1 MG/4 ML MDV IVPUSH SCH ×2 (08:46→14:17)
[2023-01-22] MEDS: Mirtazapine 15 MG Tab PO SCH (20:22)
[2023-01-23] MEDS: Apixaban 2.5 MG Tab PO SCH ×2 (08:08→20:45)
[2023-01-23] MEDS: Bumetanide 1 MG/4 ML MDV IVPUSH SCH (08:09)
[2023-01-23] MEDS: Potassium Chloride 20 MEQ Tab.ER PO SCH ×2 (08:11→13:32)
[2023-01-23] MEDS: Bumetanide 1 MG Tab PO SCH (13:32)
[2023-01-23] MEDS: Mirtazapine 15 MG Tab PO SCH (20:45)
[2023-01-24] MEDS: Apixaban 2.5 MG Tab PO SCH ×2 (09:25→21:43)
[2023-01-24] MEDS: Potassium Chloride 20 MEQ Tab.ER PO SCH ×2 (09:25→13:35)
[2023-01-24] MEDS: Bumetanide 1 MG Tab PO SCH ×2 (09:25→13:35)
[2023-01-24] MEDS: Mirtazapine 15 MG Tab PO SCH (21:40)
[2023-01-25 09:11] LABS: CARBON DIOXIDE,CO2 27.2 mmol/L (21.0-32.0); POTASSIUM,K 3.8 mmol/L (3.5-5.1)
[2023-01-25] MEDS: Apixaban 2.5 MG Tab PO SCH ×2 (10:00→21:16)
[2023-01-25] MEDS: Potassium Chloride 20 MEQ Tab.ER PO SCH ×2 (10:00→14:07)
[2023-01-25] MEDS: Bumetanide 1 MG Tab PO SCH ×2 (10:14→14:07)
[2023-01-25] MEDS: Mirtazapine 15 MG Tab PO SCH (21:17)
[2023-01-26] MEDS: Apixaban 2.5 MG Tab PO SCH (09:09)
[2023-01-26] MEDS: Potassium Chloride 20 MEQ Tab.ER PO SCH (09:16)
[2023-01-26] MEDS: Bumetanide 1 MG Tab PO SCH (10:37)
[2023-01-26 11:17] VITALS: BP 98/70; PULSE 72
== END 2023-01-26 11:00 | disposition swing bed (61) | DRG 291 ==
LOC: MW.ED 12:10 → MW.MS 16:04
PROVIDERS: ADMIT Hospitalist; ATTEND Hospitalist
DX: I13.0 Hypertensive heart and chronic kidney disease with heart failure and stage 1 through stage 4 chronic kidney disease, or unspecified chronic kidney disease (principal); I50.33 Acute on chronic diastolic (congestive) heart failure; J96.21 Acute and chronic respiratory failure with hypoxia; I11.0 Hypertensive heart disease with heart failure; N17.9 Acute kidney failure, unspecified; D61.818 Other pancytopenia; B37.0 Candidal stomatitis; I48.20 Chronic atrial fibrillation, unspecified; Z66 Do not resuscitate; Z20.822 Contact with and (suspected) exposure to COVID-19; Z51.5 Encounter for palliative care; N18.9 Chronic kidney disease, unspecified; I42.2 Other hypertrophic cardiomyopathy; I07.1 Rheumatic tricuspid insufficiency; I50.30 Unspecified diastolic (congestive) heart failure; I95.2 Hypotension due to drugs; E86.0 Dehydration; T46.5X5A Adverse effect of other antihypertensive drugs, initial encounter; Z79.890 Hormone replacement therapy; Z86.16 Personal history of COVID-19; E03.9 Hypothyroidism, unspecified; E66.9 Obesity, unspecified; Z79.01 Long term (current) use of anticoagulants; Z79.899 Other long term (current) drug therapy
CPT/HCPCS: 36415; 71045; 80053; 80162; 83735; 83880; 84100; 84484; 85025; 85610; 93005 ×2; 99285; J1940; 80048; 81001; 82947; 85027; 87040; 93010; 93306; 97110-GP; 97161-GP; 97163-GP; 97530-GP; 99223; 99232; 99233; 99239; A9270-GY; J3490; U0002